=== PATIENT | male | born 1975 | race Caucasian/White ===

== ENCOUNTER 2017-12-07 20:43 | Emergency (ER) | payer SELFPAY ==
[~2017-12-07] VITALS: Ht 170.2 cm; Wt 81.8 kg
[2017-12-07 20:44] VITALS: Ht 170.2 cm; Wt 81.8 kg
[2017-12-07] MEDS ORDERED: [UNRECOGNIZED DRUG - REMARK] (20:46)
[2017-12-07] MEDS ORDERED: HYDROCODON-ACE1 EAC7 PO (22:48)
[2017-12-07 23:49] VITALS: BP 134/97
== END 2017-12-07 23:49 | disposition home or self-care (01) ==
LOC: D.ER 20:43
DX: S01.81XA Laceration without foreign body of other part of head, initial encounter (principal); W08.XXXA Fall from other furniture, initial encounter; Y93.89 Activity, other specified; Y92.89 Other specified places as the place of occurrence of the external cause; Z87.820 Personal history of traumatic brain injury; F17.200 Nicotine dependence, unspecified, uncomplicated